=== PATIENT | male | born 1945 ===

== ENCOUNTER 2019-07-07 10:08 | Emergency (ER) | payer MEDICARE, OTHER ==
[~2019-07-07] VITALS: Ht 182.9 cm; Wt 82.5 kg
[2019-07-07] MEDS ORDERED: Zithromax250 MG PO (10:41)
== END 2019-07-07 10:52 | disposition home or self-care (01) ==
LOC: ER 10:08
DX: J01.90 Acute sinusitis, unspecified (principal); I10 Essential (primary) hypertension; Z79.899 Other long term (current) drug therapy
CPT/HCPCS: 99283

== ENCOUNTER → 2019-10-14 | Outpatient (CLI) | payer OTHER, MEDICARE ==
[~2019-10-14] MED LIST: Zithromax250 MG PO
== END | disposition home or self-care (01) ==
LOC: LAB SHORT 12:30 → LAB EV 12:30
DX: S71.159A Open bite, unspecified thigh, initial encounter (principal)
CPT/HCPCS: 87070; 87075; 87205